=== PATIENT | female | born 2000 | race Caucasian/White ===

== ENCOUNTER 2023-11-13 18:52 | Inpatient (IN) ==
[2023-11-13 19:50] LABS: Appearance Urine Clear (Clear); Bacteria Urine Automated 2+ (Negative); Bilirubin Urine Negative (Negative); Blood Urine 2+ (Negative); Color Urine Dark Yellow; Epithelial Cell Urine Auto 0-5 /lpf (0-5); Glucose Urine UA Negative (Negative); Ketones Urine 1+ (Negative); Leukocyte Esterase Urine 2+ (Negative); Nitrite Urine Negative (Negative); Protein Urine 1+ (Negative); RBC Urine Automated 0-4 /hpf (0-4); Urobilinogen Urine Negative (Negative); WBC Urine Automated >30 /hpf (0-5)
[2023-11-13 19:56] LABS: Basophils # (auto) 0.04 K/uL (0.00-0.20); Basophils % (auto) 0.2 %; Hematocrit (blood only) 37.6 % (37.0-47.0); Hemoglobin 12.9 g/dl (12.0-16.0); Immature Granulocytes # (auto) 0.08 K/uL (0.01-0.20); Immature Granulocytes % (auto) 0.5 %; Lymphocytes # (auto) 0.85 K/uL (1.20-3.40); Lymphocytes % (auto) 5.2 %; Mean Corpuscular Hemoglobin 30.2 pg (25.0-34.0); Mean Corpuscular Hgb Conc 34.3 g/dL (32.0-36.0); Mean Corpuscular Volume 88.1 fL (80.0-100.0); Mean Platelet Volume 9.7 fL (9.4-12.4); Monocytes # (auto) 1.57 K/uL (0.11-0.59); Monocytes % (auto) 9.7 %; Neutrophils # (auto) 13.67 K/uL (1.40-6.50); Neutrophils % (auto) 84.4 %; Platelet Count 250 K/uL (130-400); RDW Coefficient of Variation 12.1 % (11.5-14.5); RDW Standard Deviation 38.8 fL (36.4-46.3); Red Blood Count 4.27 M/uL (4.20-5.40); White Blood Count 16.21 K/ul (4.8-10.8)
[2023-11-13 20:11] LABS: Albumin Globulin Ratio 1.2 (0.9-2); Albumin Level 3.9 gm/dl (3.4-5.0); BUN Creatinine Ratio 12.9 (10-20); Bilirubin,Total 0.6 mg/dl (0.2-1.0); Calcium 9.1 mg/dl (8.6-10.3); Creatinine Clr Calc Pharmacy 108.4 ml/min; Est GFR (African American) 143.5 ml/min; Est GFR (Non-African American) 123.9 ml/min; Globulin 3.3 gm/dl (2.5-4.0); Potassium 3.4 mmol/L (3.5-5.1); Total Protein 7.2 gm/dl (6.0-8.3)
[2023-11-13 20:25] LABS: Influenza A virus by PCR Negative (Neg); Influenza B virus by PCR Negative (Neg); RSV by PCR Negative (Neg); SARS CoV2 RNA(COVID-19) Ceph NEGATIVE (Negative)
--- NOTE | 2023-11-13 22:24 | Emergency Department Note ---
Impression & Plan Pyelonephritis, Sepsis, Nausea & vomiting, Acute dehydration ED Provider Note NAME: GAVI JIMÉNEZ AGE: 23 SEX: F : 2000 ARRIVES VIA: Walk-In INFORMANT: Patient, ED PROVIDER(S): Marc Wing MD CHIEF COMPLAINT: MEDICAL DECISION MAKING: Patient presents due to concern for right-sided flank pain tachycardia. IV was established and blood was obtained. Patient does have a white count of 16. Urinalysis does show concern for infection. CT abdomen pelvis was ordered. Patient was ordered IV Rocephin and IV fluids. Patient was also ordered IV Toradol. Patient CT abdomen pelvis does show heterogeneous enhancement of the right kidney consistent with pyelonephritis. Upon reassessment the patient seemed to be more ill and fatigable. The patient also did have significant rash to the right side of face as well as the chest and small portion of the abdomen only denies any itchiness. When questioned the mother bedside stated that the patient sometimes can have some associated erythema when she does not feel well. The deeper redness dissipated after short period of time and prior to receiving Benadryl Pepcid or steroids. Patient had subsequent episode of bilious vomiting. No reported bowel obstruction from CAT scan. Given the patient's inability to tolerate by mouth with associated meeting for sepsis and pyelonephritis with the on-call hospitalist service. The patient was ordered Pepcid Benadryl methylprednisolone IV fluids and Zofran. Lactate was also ordered. I did speak the on-call hospitalist Dr. Reyna and the patient was admitted to the medicine service. Patient was ordered 30 cc/kg bolus. Discussion w/ other healthcare providers: Dr. Reyna inpatient medicine service Prior /Outside records reviewed: None Differential diagnosis: Renal colic, UTI, pyelonephritis, appendicitis, diverticulitis, strain, sprain, fracture among others were considered. Diagnostics, as interpreted by me: ECG: None Cardiac monitoring: An order was placed for continuous cardiac monitoring. The monitor shows a rate of 112 with tachycardic and regular rhythm. Patient was placed on pulse oximetry Medical decision rules: None Imaging studies: I informally interpreted the patient's CT abdomen pelvis does show heterogeneous enhancement of the right kidney with formal report to follow. HPI: Patient presents due to concern for back pain. Patient reportedly has had back pain ever since she returned from [place] on spring. 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 Patient states that today she has had some associated vomiting within her mouth but no overt expressive vomiting. The patient states that she has had loss of appetite. The patient denies any specific dysuria or hematuria. Patient has been taking some ibuprofen but without significant improvement in symptoms. Patient denies any falls or trauma. No numbness tingling or focal weakness that she does any bowel or bladder incontinence or retention. PAST MEDICAL HISTORY: See Below PAST SURGICAL HISTORY: See Below SOCIAL HISTORY: See Below HOME MEDICATIONS: See Below ALLERGIES: See Below VITALS: See Below PHYSICAL EXAMINATION: GENERAL: Ill in appearance. EYE EXAM: Normal conjunctiva. PERRL, no anisocoria and EOM's grossly intact w/o pain. OROPHARYNX: Moist mucus membranes, grossly normal dentition. NECK: Trachea midline, no stridor. Supple, no nuchal rigidity, no adenopathy, non-tender. No signs of meningismus. FROM of the neck with good chin to chest and neck extension. LUNGS: Clear to auscultation. Normal chest wall mechanics. HEART: Tachycardic and regular, no MRG. ABDOMEN: Abdomen soft, non-tender, no masses, no rebound or guarding. BACK: Right-sided CVA TTP. SKIN: No rashes and no bruising. UPPER EXTREMITIES: Upper extremities are grossly normal. LOWER EXTREMITIES: Grossly normal, no edema. NEURO EXAM: A&O x3, cranial nerves II-XII grossly intact, normal speech, moves all 4 extremities. Past Med/Surg History Medical History Keli-Danlos syndrome POTS (postural orthostatic tachycardia syndrome) Pyelonephritis Keli-Danlos disease Postural orthostatic tachycardia syndrome [POTS] Surgical History No pertinent past surgical history Social History Smoking Status: Current every day smoker Hx Alcohol Use: No Hx Substance Use: No Preferred Language: Italian current occupational status: student Feels Safe at Home: Yes Allergies Allergies Allergy/AdvReac Type Severity Reaction Status Date / Time Mast Cell Activation Syndrome Allergy Intermediate Hives Uncoded 11/13/23 23:21 Home Meds Home Medications Medication Instructions Recorded Confirmed cholecalciferol (vitamin D3) 125 125 mcg PO DAILY 07/05/22 11/13/23 mcg (5,000 unit) tablet (Vitamin D3) digestive enzymes 1 cap PO DIRECTED 07/05/22 11/13/23 duloxetine 60 mg capsule,delayed 60 mg PO DAILY 07/05/22 11/13/23 release famotidine 20 mg tablet 20 mg PO DAILY 07/05/22 11/13/23 loratadine 10 mg tablet 10 mg PO DAILY 07/05/22 11/13/23 norethindrone 1 mg-ethinyl 1 tab PO DAILY 07/05/22 11/13/23 estradiol 20 mcg (21)-iron 75 mg (7) tablet (June FE 09/08 ()) vitamin B complex 1 cap PO DAILY PRN NEEDED PER PT 07/05/22 11/13/23 omeprazole 40 mg capsule,delayed 40 mg PO DAILY 11/13/23 11/13/23 release potassium citrate 99 mg capsule 99 mg PO DAILY PRN NEEDED PER PT 11/13/23 11/13/23 Previous Rx's Medication Instructions Recorded ondansetron HCl 4 mg tablet 4 mg PO Q6H PRN nausea and 10/09/23 vomiting #10 tabs Results & Data (ED) Vital Signs Vital Signs - 24 hr 11/13/23 18:58 11/13/23 21:58 11/13/23 22:13 Temperature 36.9 C 36.9 C Temperature Source Temporal Artery Scan Oral Pulse Rate 98 H Pulse Rate [Left Finger] 110 H 104 H Pulse Rhythm Regular Pulse Strength Normal Respiratory Rate 18 18 18 Respiratory Effort / Characteristics Non-Labored Spontaneous Non-Labored Spontaneous Non-Labored Spontaneous Respiratory Depth Normal Normal Normal Respiratory Pattern Regular Regular Blood Pressure 122/91 Blood Pressure [Right Arm] 121/82 131/83 Blood Pressure Mean 101 Blood Pressure Mean [Right Arm] 95 99 Blood Pressure Position Sitting Blood Pressure Position [Right Arm] Sitting Lying Pulse Oximetry 100 99 100 Oxygen Delivery Method Room Air Room Air Room Air Sepsis Recent Fever Within 48 Hours No Sepsis New/Unexplained Change in Mental Status No Sepsis Action Taken by Nursing No Action Required 11/14/23 00:07 11/14/23 01:16 Temperature Temperature Source Pulse Rate Pulse Rate [Left Finger] 97 H 110 H Pulse Rhythm Pulse Strength Respiratory Rate 16 18 Respiratory Effort / Characteristics Non-Labored Spontaneous Respiratory Depth Normal Respiratory Pattern Regular Blood Pressure Blood Pressure [Right Arm] 135/95 125/87 Blood Pressure Mean Blood Pressure Mean [Right Arm] 108 99 Blood Pressure Position Blood Pressure Position [Right Arm] Lying Lying Pulse Oximetry 99 100 Oxygen Delivery Method Room Air Room Air Sepsis Recent Fever Within 48 Hours Sepsis New/Unexplained Change in Mental Status Sepsis Action Taken by [facility] Medications Current Medication List: was personally reviewed by me Laboratory Data Attestation: I reviewed the patient's lab results. 11/13/23 19:27 11/13/23 19:27 Lab Results 11/13/23 11/13/23 11/13/23 Range/Units 19:23 19: 19:28 WBC 16.21 H (4.8-10.8) K/ul RBC 4.27 (4.20-5.40) M/uL Hgb 12.9 (12.0-16.0) g/dl Hct 37.6 (37.0-47.0) % MCV 88.1 (80.0-100.0) fL MCH 30.2 (25.0-34.0) pg MCHC 34.3 (32.0-36.0) g/dL RDW Std Deviation 38.8 (36.4-46.3) fL RDW Coeff of Jenelle 12.1 (11.5-14.5) % Plt Count 250 (130-400) K/uL MPV 9.7 (9.4-12.4) fL Immature Gran % (Auto) 0.5 % Neut % (Auto) 84.4 % Lymph % (Auto) 5.2 % Edwards % (Auto) 9.7 % Eos % (Auto) 0.0 % Baso % (Auto) 0.2 % Neut # (Auto) 13.67 H (1.40-6.50) K/uL Lymph # (Auto) 0.85 L (1.20-3.40) K/uL Edwards # (Auto) 1.57 H (0.11-0.59) K/uL Eos # (Auto) 0.00 (0.00-0.50) K/uL Baso # (Auto) 0.04 (0.00-0.20) K/uL Immature Gran # (Auto) 0.08 (0.01-0.20) K/uL Sodium 133 L (136-145) mmol/L Potassium 3.4 L (3.5-5.1) mmol/L Chloride 98 (98-107) mmol/L Carbon Dioxide 26 (21-32) mmol/L Anion Gap 9 (3-11) BUN 9 (6-23) mg/dl Creatinine 0.70 (0.6-1.2) mg/dl Est Cr Clr Drug Dosing 108.4 ml/min Est GFR ( Amer) 143.5 ml/min Est GFR (Non-Af Amer) 123.9 ml/min BUN/Creatinine Ratio 12.9 (10-20) Glucose 105 H (70-99(Fasting)) mg/dl POC Glucose (70-99) mg/dl Calcium 9.1 (8.6-10.3) mg/dl Total Bilirubin 0.6 (0.2-1.0) mg/dl AST 19 (13-39) U/L ALT 15 (7-52) U/L Alkaline Phosphatase 75 (34-104) U/L Total Protein 7.2 (6.0-8.3) gm/dl Albumin 3.9 (3.4-5.0) gm/dl Globulin 3.3 (2.5-4.0) gm/dl Albumin/Globulin Ratio 1.2 (0.9-2) Urine Color Dark Yellow Urine Appearance Clear (Clear) Urine pH 6.0 (4.5-7.5) Ur Specific [place] 1.020 (1.000-1.030) Urine Protein 1+ H (Negative) Urine Glucose (UA) Negative (Negative) Urine Ketones 1+ H (Negative) Urine Blood 2+ H (Negative) Urine Nitrite Negative (Negative) Urine Bilirubin Negative (Negative) Urine Urobilinogen Negative (Negative) Ur Leukocyte Esterase 2+ H (Negative) Urine WBC (Auto) >30 H (0-5) /hpf Urine RBC (Auto) 0-4 (0-4) /hpf U Hyaline Cast (Auto) 5-10 H (0-5) /lpf U Epithel Cells (Auto) 0-5 (0-5) /lpf Urine Bacteria (Auto) 2+ H (Negative) POC Ur Test NEG (NEG) SARS-CoV-2 (PCR) NEGATIVE (Negative) Influenza Type A (PCR) Negative (Neg) Influenza Type B (PCR) Negative (Neg) RSV (RT-PCR) Negative (Neg) 11/14/23 Range/Units 02:07 WBC (4.8-10.8) K/ul RBC (4.20-5.40) M/uL Hgb (12.0-16.0) g/dl Hct (37.0-47.0) % MCV (80.0-100.0) fL MCH (25.0-34.0) pg MCHC (32.0-36.0) g/dL RDW Std Deviation (36.4-46.3) fL RDW Coeff of Jenelle (11.5-14.5) % Plt Count (130-400) K/uL MPV (9.4-12.4) fL Immature Gran % (Auto) % Neut % (Auto) % Lymph % (Auto) % Edwards % (Auto) % Eos % (Auto) % Baso % (Auto) % Neut # (Auto) (1.40-6.50) K/uL Lymph # (Auto) (1.20-3.40) K/uL Edwards # (Auto) (0.11-0.59) K/uL Eos # (Auto) (0.00-0.50) K/uL Baso # (Auto) (0.00-0.20) K/uL Immature Gran # (Auto) (0.01-0.20) K/uL Sodium (136-145) mmol/L Potassium (3.5-5.1) mmol/L Chloride (98-107) mmol/L Carbon Dioxide (21-32) mmol/L Anion Gap (3-11) BUN (6-23) mg/dl Creatinine (0.6-1.2) mg/dl Est Cr Clr Drug Dosing ml/min Est GFR ( Amer) ml/min Est GFR (Non-Af Amer) ml/min BUN/Creatinine Ratio (10-20) Glucose (70-99(Fasting)) mg/dl POC Glucose 104 H (70-99) mg/dl Calcium (8.6-10.3) mg/dl Total Bilirubin (0.2-1.0) mg/dl AST (13-39) U/L ALT (7-52) U/L Alkaline Phosphatase (34-104) U/L Total Protein (6.0-8.3) gm/dl Albumin (3.4-5.0) gm/dl Globulin (2.5-4.0) gm/dl Albumin/Globulin Ratio (0.9-2) Urine Color Urine Appearance (Clear) Urine pH (4.5-7.5) Ur Specific [place] (1.000-1.030) Urine Protein (Negative) Urine Glucose (UA) (Negative) Urine Ketones (Negative) Urine Blood (Negative) Urine Nitrite (Negative) Urine Bilirubin (Negative) Urine Urobilinogen (Negative) Ur Leukocyte Esterase (Negative) Urine WBC (Auto) (0-5) /hpf Urine RBC (Auto) (0-4) /hpf U Hyaline Cast (Auto) (0-5) /lpf U Epithel Cells (Auto) (0-5) /lpf Urine Bacteria (Auto) (Negative) POC Ur Test (NEG) SARS-CoV-2 (PCR) (Negative) Influenza Type A (PCR) (Neg) Influenza Type B (PCR) (Neg) RSV (RT-PCR) (Neg) Administered Medications Sodium Chloride (Nss) 1,000 mls @ 999 mls/hr IV .Q1H1M ONE Stop: 11/14/23 02:34 Last Admin: 11/14/23 01:45 Dose: 999 mls/hr Documented By: Discontinued Medications Diphenhydramine HCl (Diphenhydramine 50 Mg/Ml Vial) 25 mg IV NOW STA Stop: 11/14/23 01:35 Last Admin: 11/14/23 02:00 Dose: 25 mg Documented By: Ceftriaxone Sodium (Rocephin) 2,000 mg in 50 mls @ 100 mls/hr IV NOW STA Stop: 11/13/23 23:36 Last Infusion: 11/13/23 23:48 Dose: Infused Documented By: Admin: 11/13/23 23:14 Dose: 100 mls/hr Documented By: Sodium Chloride (Nss) 1,000 mls @ 999 mls/hr IV .Q1H1M ONE Stop: 11/14/23 00:09 Last Infusion: 11/14/23 00:21 Dose: Infused Documented By: Admin: 11/13/23 23:14 Dose: 999 mls/hr Documented By: Famotidine (Pepcid 20mg Iv Push) 20 mg in 5 mls @ 2.5 mls/min IV NOW STA Stop: 11/14/23 01:35 Last Admin: 11/14/23 01:45 Dose: 2.5 mls/min Documented By: Ioversol (Optiray 320 100ml) 93 ml IV ONCE ONE Stop: 11/13/23 23:47 Last Admin: 11/13/23 23:46 Dose: 93 ml Documented By: LUCRECIA Ketorolac Tromethamine (Ketorolac Tromethamine 15 Mg/Ml Vial) 10 mg IV NOW ONE Stop: 11/13/23 23:08 Last Admin: 11/13/23 23:14 Dose: 10 mg Documented By: Methylprednisolone (Methylprednisolone 125 Mg/2 Ml Vial) 125 mg IV NOW STA Stop: 11/14/23 01:35 Last Admin: 11/14/23 02:00 Dose: 125 mg Documented By: Ondansetron HCl (Ondansetron Inj 2 Mg/Ml 2 Ml Vial) 4 mg IV NOW STA Stop: 11/14/23 01:35 Last Admin: 11/14/23 02:00 Dose: 4 mg Documented By: Imaging Data Radiologist's Impression: Abdomen/Pelvis CT 11/13/23 23:08 Exam(s): CT ABDOMEN + PELVIS With Contrast IV Amt: 93 ml opti 320 EXAM: CT Abdomen and Pelvis With Intravenous Contrast CLINICAL HISTORY: Reason for exam: R flank pain. TECHNIQUE: Axial computed tomography images of the abdomen and pelvis with intravenous contrast. CTDI is 7.11 mGy and DLP is 332.61 mGy-cm. Automated exposure control was utilized for the study. A dose lowering technique was utilized adhering to the principles of ALARA. CONTRAST: Patient received 93 ml opti 320 of IV contrast COMPARISON: No relevant prior studies available. FINDINGS: Lung bases: Unremarkable. No mass. No consolidation. ABDOMEN: Liver: Unremarkable. No mass. Gallbladder and bile ducts: Unremarkable. No calcified stones. No ductal dilation. Pancreas: Unremarkable. No mass. No ductal dilation. Spleen: Unremarkable. No splenomegaly. Adrenals: Unremarkable. No mass. Kidneys and ureters: Heterogeneous enhancement of the right kidney consistent with pyelonephritis. No evidence of focal abscess. No hydronephrosis. Stomach and bowel: Unremarkable. No obstruction. No mucosal thickening. PELVIS: Appendix: No findings to suggest acute appendicitis. Bladder: Unremarkable. No mass. Reproductive: Unremarkable as visualized. ABDOMEN and PELVIS: Intraperitoneal space: Small amount of free fluid in the pelvis within physiologic limits. No free air. Bones/joints: No acute fracture. No dislocation. Soft tissues: Unremarkable. Vasculature: Unremarkable. No abdominal aortic aneurysm. Lymph nodes: Unremarkable. No enlarged lymph nodes. IMPRESSION: Heterogeneous enhancement of the right kidney consistent with pyelonephritis. No evidence of focal abscess. Electronically signed by: Coleman Zelaya M.D. 11/14/23 01:14 AM Discharge Plan Visit Data Chief Complaint: Illness ED Provider: Marc Wing Discharge Problem: Pyelonephritis, Sepsis, Nausea & vomiting, Acute dehydration Forms Stand Alone Forms: [facility] [employer] Prescriptions Prescriptions: No Action digestive enzymes Capsule 1 cap PO DIRECTED Rx Instructions: administer with food; swallow whole; do not crush/chew/dissolve/break/cut norethindrone-e.estradiol-iron [Junel FE 09/08 (28)] 1 mg-20 mcg (21)/75 mg (7) tablet 1 tab PO DAILY famotidine 20 mg tablet 20 mg PO DAILY loratadine 10 mg tablet 10 mg PO DAILY vitamin B complex [B Complex] Capsule 1 cap PO DAILY PRN (Reason: NEEDED PER PT) duloxetine 60 mg capsule,delayed release(DR/EC) 60 mg PO DAILY cholecalciferol (vitamin D3) [Vitamin D3] 125 mcg (5,000 unit) Tablet 125 mcg PO DAILY ondansetron HCl 4 mg tablet 4 mg PO Q6H PRN (Reason: nausea and vomiting) Qty: 10 0RF omeprazole 40 mg Capsule,Delayed Release(Dr/Ec) 40 mg PO DAILY potassium citrate 99 mg Capsule 99 mg PO DAILY PRN (Reason: NEEDED PER PT) Referrals Referrals: [place] [Primary Care Provider] - Discharge Problem: Sepsis Qualifiers: Sepsis type: sepsis due to unspecified organism Sepsis acute organ dysfunction status: without acute organ dysfunction Qualified Code(s): A41.9 - Sepsis, unspecified organism Nausea & vomiting Qualifiers: Vomiting type: unspecified Qualified Code(s): R11.2 - Nausea with vomiting, unspecified
[2023-11-13] MEDS: cefTRIAXone SODIUM 2,000 MG/50 ML BAG IV STA (23:14)
[2023-11-13] MEDS: SODIUM CHLORIDE 0.9% 1,000 ML IV ONE (23:14)
[2023-11-13] MEDS: KETOROLAC TROMETHAMINE 15 MG/ML VIAL IV ONE (23:14)
[2023-11-13] MEDS: OPTIRAY 320 100ml IV ONE (23:46)
--- NOTE | 2023-11-14 01:15 | CT Scan Report ---
Exam(s): CT ABDOMEN + PELVIS With Contrast IV Amt: 93 ml opti 320 EXAM: CT Abdomen and Pelvis With Intravenous Contrast CLINICAL HISTORY: Reason for exam: R flank pain. TECHNIQUE: Axial computed tomography images of the abdomen and pelvis with intravenous contrast. CTDI is 7.11 mGy and DLP is 332.61 mGy-cm. Automated exposure control was utilized for the study. A dose lowering technique was utilized adhering to the principles of ALARA. CONTRAST: Patient received 93 ml opti 320 of IV contrast COMPARISON: No relevant prior studies available. FINDINGS: Lung bases: Unremarkable. No mass. No consolidation. ABDOMEN: Liver: Unremarkable. No mass. Gallbladder and bile ducts: Unremarkable. No calcified stones. No ductal dilation. Pancreas: Unremarkable. No mass. No ductal dilation. Spleen: Unremarkable. No splenomegaly. Adrenals: Unremarkable. No mass. Kidneys and ureters: Heterogeneous enhancement of the right kidney consistent with pyelonephritis. No evidence of focal abscess. No hydronephrosis. Stomach and bowel: Unremarkable. No obstruction. No mucosal thickening. PELVIS: Appendix: No findings to suggest acute appendicitis. Bladder: Unremarkable. No mass. Reproductive: Unremarkable as visualized. ABDOMEN and PELVIS: Intraperitoneal space: Small amount of free fluid in the pelvis within physiologic limits. No free air. Bones/joints: No acute fracture. No dislocation. Soft tissues: Unremarkable. Vasculature: Unremarkable. No abdominal aortic aneurysm. Lymph nodes: Unremarkable. No enlarged lymph nodes. IMPRESSION: Heterogeneous enhancement of the right kidney consistent with pyelonephritis. No evidence of focal abscess. Electronically signed by: Coleman Zelaya M.D. 11/14/23 01:14 AM
[2023-11-14] MEDS: FAMOTIDINE 20MG IV PUSH 20 MG/5 ML SYR IV STA (01:45)
[2023-11-14] MEDS: SODIUM CHLORIDE 0.9% 1,000 ML IV ONE (01:45)
--- NOTE | 2023-11-14 01:56 | History & Physical Report ---
"Date of Service November 14, 2023 Assessment & Plan (1) Pyelonephritis: Plan: Summary: Yandy is a 23F w/ PMH of Keli Danlos Type 3, POTS, and mast cell activation syndrome (MCAS) who presented to the ED for increasing fatigue and right sided back pain. Patient was found to have evidence of right sided Pyelonephritis on CT scan and is being admitted for IV antibiotics. Pyelonephritis | Urinary Tract Infection | Sepsis * Patient SIRS + (febrile/tachycardic/leukocytosis) w/ source (Pyelonephritis) * Urinalysis indicating infection, cultures pending * Lactate elevated (2.2 H) * Blood cultures pending * CT AP indicating right pyelonephritis w/o focal abscess * Received CTX in ED, continue Ceftriaxone 1 g IV daily * S/p 1L NSS in ED, continue fluid resuscitation at 1.5 maintenance rate (LR @ 150cc/hr) * IV Tylenol PRN for pain or fever * Patient concerned that chronic back pain could be a/w her kidney, requesting Urology evaluation, consider as outpatient MCAS (Mast Cell Activation Syndrome) * Chronic condition provoked by acute temperature changes * S/p IV Benadryl 25 mg, Pepcid 20 mg, and Methylpred 125 mg w/ benefit * IV Benadryl ordered PRN for acute episodes Chronic Conditions: * POTS * EDS 3 * GERD: Continue Pepcid and PPI * Oral Contraception: Continue Junel Code Status:Full Diet:Regular as tolerated IVF:1.5 mIVF DVT PPx:SCD CM: None Dispo: Med/Tele (2) POTS (postural orthostatic tachycardia syndrome): (3) Keli-Danlos syndrome: (4) Sepsis: History of Present Illness Chief Complaint: Back Pain, Nausea, Lightheadedness Primary Care Provider: [facility] Yandy is a 23F w/ PMH of Keli Danlose Type 3, POTS, and mast cell activation syndrome (MCAS) who presented to the ED for increasing fatigue and right sided back pain. Patient notes a longstanding hx of right sided back pain/muscle spasms that come and go (no previous evaluation). Over the last week and a half, the pain has been increasing, to the point where she is having weakness in her arms and legs. She notes significant tenderness when she touches her right mid-back. She denies dysuria, suprapubic discomfort, or increased urinary frequency over the last few weeks. She endorses episodes of chills and sweats over the last 2-3 days. She has been able to hydrate, but has had increasing nausea, emesis, and lack of appetite. Patient is a [employer] student and lives off campus in an apartment with room mates. She notes that she has been unable to get out of bed for the last 2- 3 days and that her boyfriend encouraged her to come to the hospital. Patient denies hematuria or hematochezia, but notes that her IBS has been worse lately (alternating diarrhea and constipation depending on anxiety level). Patient has a hx of urinary tract infections, but none within the last year. Patient notes that her MCAS episodes are worse when she is acutely hot or cold, while in the ED she had an episode of hives to her face, chest, and abdomen which resolved with Benadryl. Patient takes Famotidine daily. No new medication changes Allergies Allergy/AdvReac Type Severity Reaction Status Date / Time Mast Cell Activation Syndrome Allergy Intermediate Hives Uncoded 11/13/23 23:21 Home Medications Medication Instructions Recorded Confirmed Type cholecalciferol (vitamin D3) 125 125 mcg PO DAILY 07/05/22 11/13/23 History mcg (5,000 unit) tablet (Vitamin D3) digestive enzymes 1 cap PO DIRECTED 07/05/22 11/13/23 History duloxetine 60 mg capsule,delayed 60 mg PO DAILY 07/05/22 11/13/23 History release famotidine 20 mg tablet 20 mg PO DAILY 07/05/22 11/13/23 History loratadine 10 mg tablet 10 mg PO DAILY 07/05/22 11/13/23 History norethindrone 1 mg-ethinyl 1 tab PO DAILY 07/05/22 11/13/23 History estradiol 20 mcg (21)-iron 75 mg (7) tablet (June FE 09/08 (28)) vitamin B complex 1 cap PO DAILY PRN NEEDED PER PT 07/05/22 11/13/23 History ondansetron HCl 4 mg tablet 4 mg PO Q6H PRN nausea and 10/09/23 11/13/23 Rx vomiting #10 tabs omeprazole 40 mg capsule,delayed 40 mg PO DAILY 11/13/23 11/13/23 History release potassium citrate 99 mg capsule 99 mg PO DAILY PRN NEEDED PER PT 11/13/23 11/13/23 History Past Med/Surg History Medical History (Updated 11/14/23 @ 03:04 by Justen Valiente DO) Sepsis Keli-Danlos syndrome POTS (postural orthostatic tachycardia syndrome) Pyelonephritis Keli-Danlos disease Postural orthostatic tachycardia syndrome [POTS] Surgical History No pertinent past surgical history Social History Smoking Status: Never smoker Hx Alcohol Use: Yes Hx Substance Use: Yes Last Used Substance: Unknown Preferred Language: [place] Communication Ability: Effective Filler Shredder Required: No Beliefs That Will Affect Care: None Current Living Situation: Significant Other Current Living Situation Comment: [facility] current occupational status: student Feels Safe at Home: Yes Safety Concerns: Feels Safe At This Time Assistive Devices: None Physical Exam Physical Exam: Gen: Flushed, diaphoretic, alert, interactive HEENT: Supple, no LAD, no thyromegaly, no JVD Resp:Non-labored, no wheezing/rhonchi/rales, CTAB CV: Tachycardic, regular, normal S1/S2, no M/R/G Abd: Soft, non-distended, no TTP, normoactive bowels, no masses, R CVA TTP, palpable right thoracic paraspinal spasm (T6-10) Extr: 2+ dp bilaterally, no edema Skin: Face flushed, hives resolved on evaluation Results & Data Results & Data Vital Signs (Past 12 Hours) Vital Signs Temp Pulse Pulse Resp BP BP Pulse Ox 11/14/23 01:16 110 H 18 125/87 100 11/14/23 00:07 97 H 16 135/95 99 11/13/23 22:13 36.9 C 104 H 18 131/83 100 11/13/23 21:58 110 H 18 121/82 99 11/13/23 18:58 36.9 C 98 H 18 122/91 100 O2 Del Method 11/14/23 01:16 Room Air 11/14/23 00:07 Room Air 11/13/23 22:13 Room Air 11/13/23 21:58 Room Air 11/13/23 18:58 Room Air Supervising Physician Co-Signing Physician Notes Patient seen and examined, chart reviewed, case discussed with Dr. Valiente and I agree with the assessment and plan as above Pyelonephritis. Patient meets sepsis criteria. HD stable at present Nontoxic +S1/S2, regular Lungs CTA anteriorly Abd soft, NT/ND Labs and images reviewed WBC=16.21 negative Assessment/Plan -Continue ceftriaxone -Follow culture data -Tylenol and Zofran PRN -Remainder of plan as above Resident Activity Tracking Resident Involvement: Resident Care Provided Care Provided: Adult Hospital Medicine (night)"
[2023-11-14] MEDS: diphenhydrAMINE 50 MG/ML VIAL IV STA (02:00)
[2023-11-14] MEDS: methylPREDNISolone 125 MG/2 ML VIAL IV STA (02:00)
[2023-11-14] MEDS: ONDANSETRON INJ 2 MG/ML 2 ML VIAL IV STA (02:00)
[2023-11-14] MEDS: ACETAMINOPHEN 1,000 MG/100 ML VIAL IV STA (03:33)
[2023-11-14] MEDS: LACTATED RINGER'S 1,000 ML IV SCH (03:58)
[2023-11-14] MEDS ORDERED: VITAMIN B COMPLEX TAB PO PRN (04:41)
[2023-11-14] MEDS ORDERED: ACETAMINOPHEN 1,000 MG/100 ML VIAL IV PRN (04:41)
[2023-11-14] MEDS ORDERED: NON-FORMULARY MEDICATION (Digestive Enzymes Capsule) PO SCH (04:41)
--- NOTE | 2023-11-14 05:50 | Billing Data ---
Date of Service November 14, 2023 Coding Level of Care Code 83405 INT INP/OBS CARE
[2023-11-14] MEDS: PANTOprazole 40 MG TAB PO SCH (08:05)
[2023-11-14] MEDS: DULoxetine HCL 60 MG CAP PO SCH (08:05)
[2023-11-14] MEDS: FAMOTIDINE 20 MG TAB PO SCH (08:05)
[2023-11-14] MEDS: POTASSIUM CHLORIDE CRTAB 20 MEQ TABCR PO ONE (13:11)
[2023-11-14] MEDS: ACETAMINOPHEN 325 MG TAB PO PRN (14:12)
--- NOTE | 2023-11-14 14:21 | Hospitalist Progress Note ---
Date of Service November 14, 2023 Assessment & Plan (1) Pyelonephritis: Plan: Suspected UTI and right pyelonephritis on admission. Urine culture growing gram-negative rods. She remains on Rocephin, day 1. Blood culture results are pending. (2) POTS (postural orthostatic tachycardia syndrome): Plan: Stable. Continue current medical management (3) Keli-Danlos syndrome: Plan: Congenital. Stable. (4) Sepsis: Plan: Present on admission. Treat underlying infectious process Plan Hopeful discharge to home soon on oral antibiotic Admission and Anticipated Discharge Date Admission Date: November 14, 2023 Subjective Alert and oriented. Hemodynamically stable. She has some right flank discomfort however from the underlying right pyelonephritis. Urine culture is growing gram-negative rods. Blood culture results pending. Mild hypokalemia noted. She remains on Rocephin, day 1 Review of Systems 2 Review of Systems: Constitutional-no fever or chills ENT-no blurred vision, no double vision, no epistaxis, no sore throat Respiratory-no cough, no wheezing, no shortness of breath Cardiac-no palpitations, no chest pain, no syncope GI-no nausea, vomiting, diarrhea, melena, hematochezia. Right flank discomfort -no urinary retention, no urinary incontinence, no dysuria, no hematuria Musculoskeletal-no joint pain, no muscle tenderness Skin-no bruising, no rashes, no pruritus Neuro-no isolated weakness, no paresthesia Psych-no depression, no anxiety Physical Exam 2 Physical Exam: General-alert and oriented x3, no fever, no chills HEENT-head atraumatic and normocephalic, pupils equal and reactive to light, extraocular muscles intact Neck-no lymphadenopathy or thyromegaly, trachea midline Chest-clear to auscultation. No rales, wheezing or rhonchi Cardiac-regular rate and rhythm, normal S1 and S2 Abdomen-normal bowel sounds, nontender, no hepatosplenomegaly Extremities-no cyanosis, clubbing, or edema Neuro-cranial nerves II through XII intact, motor and sensory function within normal limits, strength symmetrical, no focal deficits Psych-normal affect, normal mood Results & Data Results & Data Vital Signs (Past 12 Hours) Vital Signs Temp Pulse Pulse Resp BP BP Pulse Ox 11/14/23 10:19 68 20 115/77 99 11/14/23 10:19 36.6 C 11/14/23 10:18 66 11/14/23 07:12 77 11/14/23 04:59 88 20 130/87 98 11/14/23 04:41 75 18 130/87 98 11/14/23 04:41 11/14/23 04:32 36.7 C 11/14/23 03:30 108 H 19 96 11/14/23 03:00 109 H 19 96 11/14/23 02:41 117 H 11/14/23 02:40 117 H 15 11/14/23 02:40 38.9 C H O2 Del Method O2 Del Method 11/14/23 10:19 Room Air 11/14/23 10:19 11/14/23 10:18 11/14/23 07:12 11/14/23 04:59 Room Air 11/14/23 04:41 Room Air 11/14/23 04:41 Room Air 11/14/23 04:32 11/14/23 03:30 Room Air 11/14/23 03:00 Room Air 11/14/23 02:41 11/14/23 02:40 11/14/23 02:40 Laboratory Results 11/13/23 19:27 11/13/23 19:27 PG Care Time/CCT Total # of Minutes Spent Total Time Spent with Patient: Total time spent is greater than 50% in coordination of care (as documented) at patient's floor/unit and/or counseling patient: Coding Level of Care Code 01737 SUB INP/OBS CARE 3/50MIN Diagnoses Pyelonephritis N12 POTS (postural orthostatic tachycardia syndrome) G90.A Keli-Danlos syndrome Q79.60 Sepsis A41.9
[2023-11-14] MEDS: oxyCODONE HCL IR 5 MG TAB (IMMEDIATE RELEASE) PO PRN (19:41)
[2023-11-14] MEDS ORDERED: cefTRIAXone SODIUM 1,000 MG in DEXTROSE 5 % MINI-B 50 ML IV SCH (22:00)
[2023-11-14] MEDS: cefTRIAXone SODIUM 2,000 MG in DEXTROSE 5 % MINI-B 50 ML IV SCH (22:00)
[2023-11-15 07:26] LABS: Basophils # (auto) 0.03 K/uL (0.00-0.20); Basophils % (auto) 0.3 %; Eosinophils # (auto) 0.02 K/uL (0.00-0.50); Eosinophils % (auto) 0.2 %; Hematocrit (blood only) 31.2 % (37.0-47.0); Hemoglobin 10.8 g/dl (12.0-16.0); Immature Granulocytes # (auto) 0.06 K/uL (0.01-0.20); Immature Granulocytes % (auto) 0.5 %; Lymphocytes # (auto) 2.15 K/uL (1.20-3.40); Lymphocytes % (auto) 18.9 %; Mean Corpuscular Hemoglobin 30.2 pg (25.0-34.0); Mean Corpuscular Hgb Conc 34.6 g/dL (32.0-36.0); Mean Corpuscular Volume 87.2 fL (80.0-100.0); Mean Platelet Volume 9.8 fL (9.4-12.4); Monocytes # (auto) 1.09 K/uL (0.11-0.59); Monocytes % (auto) 9.6 %; Neutrophils # (auto) 8.05 K/uL (1.40-6.50); Neutrophils % (auto) 70.5 %; Platelet Count 214 K/uL (130-400); RDW Coefficient of Variation 12.2 % (11.5-14.5); RDW Standard Deviation 39.8 fL (36.4-46.3); Red Blood Count 3.58 M/uL (4.20-5.40)
[2023-11-15 07:56] LABS: Anion Gap 6 (3-11); Blood Urea Nitrogen 11 mg/dl (6-23); Calcium 8.4 mg/dl (8.6-10.3); Carbon Dioxide 29 mmol/L (21-32); Chloride 107 mmol/L (98-107); Creatinine Clr Calc Pharmacy 124.6 ml/min; Est GFR (African American) > 150.0 ml/min; Est GFR (Non-African American) 129.6 ml/min; Glucose 105 mg/dl (70-99(Fasting)); Potassium 3.6 mmol/L (3.5-5.1); Sodium 142 mmol/L (136-145)
--- NOTE | 2023-11-15 16:49 | Hospitalist Progress Note ---
Date of Service November 15, 2023 Assessment & Plan (1) Pyelonephritis: Plan: Suspected UTI and right pyelonephritis on admission. Urine culture growing gram-negative rods. Blood cultures are negative to date continue iv Rocephin and will transition to augmentin at [place] ,[place] 11/28/23 Due to pts musculoskeletal pain pt will be eval with mri of affected areas in right paraspinous areas and SI joints by MRI, did have lyme screen and blood smear test preliminary negative (2) Sepsis: Plan: Present on admission. resolved after treating underlying infectious process (3) Keli-Danlos syndrome: Plan: Congenital. Stable. (4) POTS (postural orthostatic tachycardia syndrome): Plan: Stable. Admission and Anticipated Discharge Date Admission Date: November 14, 2023 Subjective This pt is mostly bothered by her back pain, this is on the right and in the lower thoracic area around t 8-12, and her right SI joint, these are intermi ttent and pre dating hospital stay. They flared up and this is what eventually lead to the ER visit and now diagnosing pyelonephritis, her pain control is the biggest Physical Exam Physical Exam: reproducible pain at the paraspinous muscles and her SI joint, not the CVA area, abd is soft and non tender no rebound. Results & Data Results & Data Vital Signs (Past 12 Hours) Vital Signs Temp Pulse Pulse Resp BP Pulse Ox O2 Del Method 11/15/23 16:02 98.4 F 80 18 128/82 99 Room Air 11/15/23 15:20 75 11/15/23 11:22 98.1 F 109 H 18 132/84 99 Room Air 11/15/23 08:37 73 11/15/23 07:48 98.1 F 77 18 127/77 99 Room Air Laboratory Results review cbc review chemistry PG Care Time/CCT Total # of Minutes Spent Total Time Spent with Patient: Total time spent is greater than 50% in coordination of care (as documented) at patient's floor/unit and/or counseling patient: Coding Level of Care Code 71188 SUB INP/OBS CARE 2/35MIN Diagnoses Pyelonephritis N12 Sepsis A41.9 Keli-Danlos syndrome Q79.60 POTS (postural orthostatic tachycardia syndrome) G90.A
--- NOTE | 2023-11-15 20:59 | Magnetic Resonance Report ---
Exam(s): MRI T SPINE Without Contrast EXAM: MR Thoracic Spine Without Intravenous Contrast CLINICAL HISTORY: Reason for exam: righth sided lower thoracic pain. TECHNIQUE: Magnetic resonance images of the thoracic spine without intravenous contrast in multiple planes. COMPARISON: No relevant prior studies available. FINDINGS: Vertebrae: Unremarkable. No acute fracture. Discs/spinal canal/neural foramina: No acute findings. No significant disc disease. No spinal canal stenosis. Spinal cord: Unremarkable. Normal signal. Soft tissues: Unremarkable. IMPRESSION: Normal thoracic spine MRI. Electronically signed by: Skyler Angelo MD 11/15/23 20:58 PM
[2023-11-15] MEDS: ONDANSETRON INJ 2 MG/ML 2 ML VIAL IV PRN (21:06)
--- NOTE | 2023-11-15 21:15 | Magnetic Resonance Report ---
Exam(s): MRI L SPINE Without Contrast EXAM: MR Lumbar Spine Without Intravenous Contrast CLINICAL HISTORY: Reason for exam: right sided si pain. TECHNIQUE: Magnetic resonance images of the lumbar spine without intravenous contrast in multiple planes. COMPARISON: No relevant prior studies available. FINDINGS: Vertebrae: Unremarkable. No acute fracture. Spinal cord: Unremarkable. Normal signal. Soft tissues: Unremarkable. DISCS/SPINAL CANAL/NEURAL FORAMINA: L1-L2: Unremarkable. No significant disc disease. No stenosis. L2-L3: Unremarkable. No significant disc disease. No stenosis. L3-L4: Unremarkable. No significant disc disease. No stenosis. L4-L5: Unremarkable. No significant disc disease. No stenosis. L5-S1: Unremarkable. No significant disc disease. No stenosis. IMPRESSION: Normal lumbar spine MRI. Electronically signed by: Skyler Angelo MD 11/15/23 21:14 PM
[2023-11-15] MEDS: diphenhydrAMINE 50 MG/ML VIAL IV PRN (22:16)
[2023-11-16 06:43] LABS: Basophils # (auto) 0.04 K/uL (0.00-0.20); Basophils % (auto) 0.6 %; Eosinophils # (auto) 0.05 K/uL (0.00-0.50); Eosinophils % (auto) 0.7 %; Hematocrit (blood only) 35.2 % (37.0-47.0); Hemoglobin 11.9 g/dl (12.0-16.0); Immature Granulocytes # (auto) 0.05 K/uL (0.01-0.20); Immature Granulocytes % (auto) 0.7 %; Lymphocytes # (auto) 2.66 K/uL (1.20-3.40); Lymphocytes % (auto) 37.5 %; Mean Corpuscular Hemoglobin 29.8 pg (25.0-34.0); Mean Corpuscular Hgb Conc 33.8 g/dL (32.0-36.0); Mean Corpuscular Volume 88.2 fL (80.0-100.0); Mean Platelet Volume 9.5 fL (9.4-12.4); Monocytes # (auto) 0.64 K/uL (0.11-0.59); Neutrophils # (auto) 3.65 K/uL (1.40-6.50); Neutrophils % (auto) 51.5 %; Platelet Count 258 K/uL (130-400); RDW Coefficient of Variation 12.1 % (11.5-14.5); RDW Standard Deviation 39.4 fL (36.4-46.3); Red Blood Count 3.99 M/uL (4.20-5.40); White Blood Count 7.09 K/ul (4.8-10.8)
[2023-11-16 06:46] LABS: Calcium 8.5 mg/dl (8.6-10.3); Potassium 3.3 mmol/L (3.5-5.1)
[2023-11-16 06:52] LABS: BUN Creatinine Ratio 14.1 (10-20); Creatinine Clr Calc Pharmacy 124.9 ml/min; Est GFR (African American) 147.8 ml/min; Est GFR (Non-African American) 127.6 ml/min
--- NOTE | 2023-11-16 07:33 | Discharge Summary ---
Date of Service November 16, 2023 Admission HPI Per Admitting Provider Yandy is a 23F w/ PMH of Keli Danlose Type 3, POTS, and mast cell activation syndrome (MCAS) who presented to the ED for increasing fatigue and right sided back pain. Patient notes a longstanding hx of right sided back pain/muscle spasms that come and go (no previous evaluation). Over the last week and a half, the pain has been increasing, to the point where she is having weakness in her arms and legs. She notes significant tenderness when she touches her right mid-back. She denies dysuria, suprapubic discomfort, or increased urinary frequency over the last few weeks. She endorses episodes of chills and sweats over the last 2-3 days. She has been able to hydrate, but has had increasing nausea, emesis, and lack of appetite. Patient is a [employer] student and lives off campus in an apartment with maco craig. She notes that she has been unable to get out of bed for the last 2-3 days and that her boyfriend encouraged her to come to the hospital. Patient denies hematuria or hematochezia, but notes that her IBS has been worse lately (alternating diarrhea and constipation depending on anxiety level). Patient has a hx of urinary tract infections, but none within the last year. Patient notes that her MCAS episodes are worse when she is acutely hot or cold, while in the ED she had an episode of hives to her face, chest, and abdomen which resolved with Benadryl. Patient takes Famotidine daily. No new medication changes Principal Diagnosis Pyelonephritis, e coli martinez sensitive musculoskeletal back pain Discharge Exam pt has reproducible pain at points along paraspinous muscles and SI joint area Discharge Data Allergies Allergy/AdvReac Type Severity Reaction Status Date / Time Mast Cell Activation Syndrome Allergy Intermediate Hives Uncoded 11/13/23 23:21 Consultations 11/14/23 01:36 ED Decision to Admit Stat Ordered Studies 11/13/23 23:08 CT abd pelvis IV con only Stat 11/15/23 13:47 MRI Lumbar Spine [MR lumbar spine wo con] Routine MRI Thoracic [MR thoracic spine wo con] Routine Hospital Course (1) Pyelonephritis: Suspected UTI and right pyelonephritis on admission. Urine culture growing gram-negative rods. Blood cultures are negative to date continue iv Rocephin and will transition to augmentin at [place] ,[place] 11/23/23 Due to pts musculoskeletal pain MRI of T and L/S spine are negative and preliminary lyme test plus smear for amaplasmosis and babesia are negative (2) Sepsis: Present on admission. resolved after treating underlying infectious process (3) Keli-Danlos syndrome: Congenital. Stable. (4) POTS (postural orthostatic tachycardia syndrome): Stable. Total Time Total Time Spent Total Time Spent (In Minutes): It required greater than 30 minutes to prepare this patient for discharge. Discharge Plan Discharge Items Patient Disposition: Home - Self-Care Reason For Visit: BACK PAIN, PYELONEPHRITIS Discharge Diagnosis: E coli Pyelonephritis musculoskeletal back pain Activity: Per Instructions section Activity Comment: slowly increase physical activity Non-emergency contact: Primary Care Provider Call non-emergency contact if: your symptoms worsen Follow-up/Referrals: [place],[facility] [Primary Care Provider] - Diet: Regular Addtl Attending Provider Instructions: you have been diagnosed with an E coli kidney infection (Pyelonephritis) this should be completely cleared by taking your antibiotics and continuing with good hydration. Antibiotics can affect your bowel health so it can be helpful to eat yogurt or cottage cheese while taking antibiotics or use a probiotic Your MRI scans of your thoracic and lumbar sacral area did not show any abnormalities, this would suggest that your pain maybe from musculoskeletal issues but have not yet created any permanent of long standing changes to your spine or joints, it would be suggested to continue to focus on a healthy lifestyle, moderate exercise and stretching. Pending Studies at Discharge: No Stand-Alone Forms: My [facility], Smoking Cessation Medications and CO Order Prescriptions: New amoxicillin-pot clavulanate 875-125 mg tablet 1 tab PO BID Qty: 16 0RF ondansetron HCl 4 mg tablet 4 mg PO BID PRN (Reason: nausea and vomiting) Qty: 10 0RF Continued digestive enzymes Capsule 1 cap PO DIRECTED Rx Instructions: administer with food; swallow whole; do not crush/chew/dissolve/break/cut norethindrone-e.estradiol-iron [09/08 (28)] 1 mg-20 mcg (21)/75 mg (7) tablet 1 tab PO DAILY famotidine 20 mg tablet 20 mg PO DAILY loratadine 10 mg tablet 10 mg PO DAILY vitamin B complex Capsule 1 cap PO DAILY PRN (Reason: NEEDED PER PT) duloxetine 60 mg capsule,delayed release(DR/EC) 60 mg PO DAILY cholecalciferol (vitamin D3) [Vitamin D3] 125 mcg (5,000 unit) Tablet 125 mcg PO DAILY ondansetron HCl 4 mg tablet 4 mg PO Q6H PRN (Reason: nausea and vomiting) Qty: 10 0RF omeprazole 40 mg Capsule,Delayed Release(Dr/Ec) 40 mg PO DAILY potassium citrate 99 mg Capsule 99 mg PO DAILY PRN (Reason: NEEDED PER PT) Discharge Orders: Discharge Order (Routine); Ordered 11/16/23 Ordered By: Yoandy Panchal Admission Data Admit Date/Time: 11/14/23 03:15 Attending Provider: Yoandy Panchal Admit Provider: Justen Valiente Primary Care Provider: [place] Other Providers: Lynda Reyna Other Interventions: Discharge Summary Assessment (RN) Last Done: 11/16/23 11:40 Coding Level of Care Code 39157 INP/OBS DISCH >30 MIN Diagnoses Pyelonephritis N12 Sepsis A41.9 Keli-Danlos syndrome Q79.60 POTS (postural orthostatic tachycardia syndrome) G90.A
[2023-11-19 10:07] LABS: Ehrlichia chaff DNA Bld Negative (Negative)
[2023-11-19 18:21] LABS: Babesia microti DNA Not Detected (Not Detected)
== END 2023-11-16 13:13 | disposition home or self-care (01) | DRG 872 ==
LOC: ED 18:52 → EDINP 11-14 03:15 → SUATTDRO 11-14 03:15 → 1E 11-14 10:10 → 2E 11-14 17:23